=== PATIENT | male | born 1955 | race Caucasian/White ===

== ENCOUNTER → 2016-11-05 | Outpatient (CLI) | payer OTHER ==
[~2016-11-05] MED LIST: CHLOTAB3 PO; LISI-725 PO; SIMV20TA2 PO
--- NOTE | 2016-11-05 16:02 | DIAGNOSTIC IMAGING REPORT ---
CHEST 2 VIEWS ROUTINE CLINICAL HISTORY: R05 [id number] cough. Dyspnea. COMPARISON STUDY: No previous studies for comparison. FINDINGS: The bones soft tissues and hemidiaphragms are normal. The cardiomediastinal silhouette is normal. The lungs are clear. The pulmonary vasculature is normal. IMPRESSION: Negative chest. Electronically signed by: Aebl Lozano M.D. 11/05/2016 4:00 PM Dictated Date/Time: 11/05/2016 4:00 PM
== END | disposition home or self-care (01) ==
LOC: C.RAD1850 15:45
PROVIDERS: ATTEND Family Medicine
DX: R06.2 Wheezing (principal); R05 Cough

== ENCOUNTER → 2017-11-15 | Outpatient (CLI) | payer OTHER ==
[~2017-11-15] MED LIST changes: -CHLOTAB3 PO; -LISI-725 PO
[2017-11-15 11:46] LABS: BASO % 0.3 %; BASO ABS # 0.02 K/uL (0-0.2); EOS % 2.2 %; EOS ABS # 0.15 K/uL (0-0.5); HEMATOCRIT 44.4 % (42-52); HEMOGLOBIN 15.2 g/dL (14.0-18.0); IG# 0.01 K/uL (0.00-0.02); LYMPH % 32.9 %; LYMPH ABS # 2.25 K/uL (1.2-3.4); MEAN CELL VOLUME 90.4 fL (80-100); MEAN CORPUSCULAR HGB CONC 34.2 g/dl (32-36); MEAN PLATELET VOLUME 10.5 fL (7.4-10.4); MONO ABS # 0.55 K/uL (0.11-0.59); NEUT % 56.5 %; NEUT ABS # 3.86 K/uL (1.4-6.5); PLATELET COUNT 201 K/uL (130-400); RED CELL DISTRIBUTION WIDTH CV 12.8 % (11.5-14.5); RED CELL DISTRIBUTION WIDTH SD 42.1 fL (36.4-46.3); WHITE BLOOD COUNT 6.84 K/uL (4.8-10.8)
[2017-11-15 12:10] LABS: ALBUMIN 3.9 gm/dl (3.4-5.0); ALT/SGPT 27 U/L (12-78); AST/SGOT 16 U/L (15-37); BLOOD UREA NITROGEN 18 mg/dl (7-18); CALCIUM 8.9 mg/dl (8.5-10.1); CARBON DIOXIDE 27 mmol/L (21-32); CREATININE 1.03 mg/dl (0.60-1.40); GLUCOSE 98 mg/dl (70-99); POTASSIUM 3.8 mmol/L (3.5-5.1); SODIUM 140 mmol/L (136-145)
[2017-11-15 12:15] LABS: ALKALINE PHOSPHATASE 68 U/L (45-117); CHOLESTEROL 144 mg/dl (0-200); LDL CHOLESTEROL CALCULATED 65 mg/dl; TOTAL PROTEIN 7.4 gm/dl (6.4-8.2)
== END | disposition home or self-care (01) ==
LOC: C.LABBC 08:52
PROVIDERS: ATTEND Nurse Practitioner Family
DX: H91.90 Unspecified hearing loss, unspecified ear (principal); Z85.46 Personal history of malignant neoplasm of prostate; Z11.59 Encounter for screening for other viral diseases; E78.5 Hyperlipidemia, unspecified; I10 Essential (primary) hypertension

== ENCOUNTER 2018-12-08 14:33 | Inpatient (IN) ==
--- NOTE | 2018-12-08 15:44 | XRay Report ---
XR chest 1V portable CLINICAL HISTORY: weakness dyspnea COMPARISON STUDY: No previous studies for comparison. FINDINGS: The bones soft tissues and hemidiaphragms are normal. The cardiomediastinal silhouette is n ormal. The lungs are clear. The pulmonary vasculature is normal. IMPRESSION: Negative chest. The above report was generated using voice recognition software. It may contain grammatical, syntax or spelling errors. Electronically signed by: Abel Lozano M.D. 12/08/2018 3:43 PM
[2018-12-08 16:13] LABS: Basophils # (auto) 0.07 K/uL (0-0.2); Basophils % (auto) 1.4 %; Eosinophils # (auto) 0.13 K/uL (0-0.5); Eosinophils % (auto) 2.6 %; Hematocrit (blood only) 41.2 % (42-52); Hemoglobin 13.9 g/dL (14.0-18.0); Lymphocytes # (auto) 1.68 K/uL (1.2-3.4); Lymphocytes % (auto) 33.9 %; Mean Corpuscular Hgb Conc 33.7 g/dL (32-36); Mean Corpuscular Volume 92.8 fL (80-100); Mean Platelet Volume 10.8 fL (7.4-10.4); Monocytes % (auto) 12.1 %; Neutrophils # (auto) 2.47 K/uL (1.4-6.5); Platelet Count 192 K/uL (130-400); RDW Coefficient of Variation 12.8 % (11.5-14.5); RDW Standard Deviation 43.2 fL (36.4-46.3); Red Blood Count 4.44 M/uL (4.7-6.1); White Blood Count 4.95 K/uL (4.8-10.8)
--- NOTE | 2018-12-08 16:24 | CT Scan Report ---
CT head/brain wo con CT DOSE: 729.78 mGycm HISTORY: Mental status change weakness TECHNIQUE: Multiaxial CT images of the head were performed without the use of intravenous contrast. A dose lowering technique was utilized adhering to the principles of ALARA. Comparison: None. Findings: The paranasal sinuses and mastoid air cells are clear. 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 Stable atrophy of the cerebellum and pontine medullary region. Mild chronic small vessel change of periventricular deep white matter regions. No acute intracranial hemorrhage. Impression: Pre-existing infarcts and atrophy. No acute process. The above report was generated using voice recognition software. It may contain grammatical, syntax or spelling errors. Electronically signed by: Abel Lozano M.D. 12/08/2018 4:23 PM
[2018-12-08 16:28] LABS: Albumin Level 3.8 gm/dl (3.4-5.0); BUN Creatinine Ratio 14.2 (10-20); Creatinine Clr Calc Pharmacy 66.2 ml/min; Est GFR (African American) 73.9; Est GFR (Non-African American) 63.7; Potassium 4.1 mmol/L (3.5-5.1)
--- NOTE | 2018-12-08 16:32 | CT Scan Report ---
CT SCAN OF THE ABDOMEN AND PELVIS WITHOUT IV CONTRAST CLINICAL HISTORY: Generalized abdominal pain. COMPARISON STUDY: No priors. TECHNIQUE: CT scan of the abdomen and pelvis is performed from the lung bases to the proximal femora. Images are reviewed in the axial, sagittal, and coronal planes. IV contrast was not administered for this examination as per the referring clinician. Note that the examination was performed in signific antly suboptimal fashion without oral and IV contrast. The examination is also degraded by streak art ifact from the arms which could not be elevated above the abdomen. A dose lowering technique was util ized adhering to the principles of ALARA. CT DOSE: 1108.51 mGycm FINDINGS: Lung bases: The heart is top normal in size and without pericardial effusion. The lung bases are naseem r noting dependent atelectasis. Liver: The unenhanced liver is normal in size, contour, and attenuation. There is no intrahepatic vannesa iary ductal dilatation. Scattered hepatic cysts measure up to 2.5 cm. Additional subcentimeter hypode nsities also likely represent cysts but are too small for definitive characterization. Gallbladder: Unremarkable. Spleen: Normal in size and attenuation. Pancreas: The unenhanced pancreas is moderately atrophic and grossly unremarkable. Adrenal glands: Unremarkable. Kidneys: The unenhanced kidneys demonstrate cortical atrophy and are without hydronephrosis. There ar e least 2 nonobstructing calculi in the right kidney, and at least 8 nonobstructing left or a calculi . These measure up to 7 mm. A 2.6 cm cyst is noted in the left lower pole. Abdominal vasculature: The abdominal aorta is normal in course and caliber noting mild atheroscleroti c calcification. Bowel: There is rectosigmoid fecal retention and moderate constipation. No bowel obstruction is ident ified. There is mild colonic diverticulosis without CT evidence of acute diverticulitis. The appendix is well-visualized and normal. Peritoneum: There is no intraperitoneal free air or abdominal ascites. Lymphadenopathy: None. Pelvic viscera: The prostate gland is surgically absent, and numerous surgical clips are present in t he pelvis. The bladder is normal as visualized. Skeletal structures: The skeletal structures are osteopenic. There are bilateral pars defects at L5 w ith advanced disc space narrowing and 12 mm of anterolisthesis at L5-S1. Degenerative change and part ial fusion is noted in the sacroiliac joints. No lytic or blastic lesions are seen. IMPRESSION: 1. Suboptimal examination without oral and IV contrast. 2. There are no acute infectious or inflammatory findings in the abdomen or pelvis. 3. Rectosigmoid fecal retention and moderate constipation. 4. Bilateral nephrolithiasis. 5. Additional findings as above. Electronically signed by: Neftali Dennison M.D. 12/08/2018 4:31 PM
[2018-12-08 16:39] LABS: Albumin Globulin Ratio 1.1 (0.9-2); Bilirubin,Total 0.4 mg/dl (0.2-1); Globulin 3.4 gm/dl (2.5-4.0); Total Protein 7.2 gm/dl (6.4-8.2)
[2018-12-08 19:32] LABS: Appearance Urine Cloudy (Clear); Bacteria Urine Automated 2+ (Negative); Bilirubin Urine Negative (Negative); Blood Urine 1+ (Negative); Color Urine Yellow; Epithelial Cell Urine Auto >30 /lpf (0-5); Glucose Urine UA Negative (Negative); Ketones Urine Trace (Negative); Leukocyte Esterase Urine 1+ (Negative); Nitrite Urine Negative (Negative); Protein Urine Negative (Negative); Specific Gravity Urine 1.022 (1.000-1.030); Urobilinogen Urine Positive (Negative)
[2018-12-08] MEDS ORDERED: SODIUM CHLORIDE 0.9% 1000ML 1,000 ML IV ONE (19:55)
[2018-12-08 19:56] LABS: Renal Epithelial Cells Urine 0-5 /lpf (0-5)
--- NOTE | 2018-12-08 20:50 | Emergency Department Note ---
Entered by Michael Mckeon acting as a scribe for Jimmie Valdivia MD History of Present Illness General Chief complaint: Illness Stated complaint: lethargic Time Seen by Provider: 12/08/18 15:04 Source: patient and family History of Present Illness Onset (ago): week(s) (past few) Location: head (generalized) and lower extremity Pain Consistency: + other (persistent) Quality: + other (weakness) Associated symptoms: + other (vomiting, constipation; stroke five months ago) The patient is a 63 year old male who presents to the Emergency Room with complaints of persistent weakness and general decline for the past few weeks. 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 She states that he has regained some movement in his left leg but not his arm. Family states that the patient has been home from [facility] for the past three weeks, and he has been vomiting and intermittently constipated. She states that the patient had a UTI 1.5 weeks ago and finished his antibiotics three days ago. She notes that the patient was having hallucinations associated with his UTI that have been improving. She reports that the patient fell a few weeks ago at [facility] out of a wheelchair landing on his arm, and he notes left shoulder pain since that time. She states that the patient cannot be accepted to nursing care until he has been evaluated. She notes that the patient is not himself. She states that the patient does not take blood thinners. Home Medications Home Medications Medication Instructions Recorded Confirmed Type acetaminophen 1,000 mg PO BID PRN 12/08/18 12/08/18 History baclofen 10 mg PO TID PRN 12/08/18 12/08/18 History carvedilol 6.25 mg PO BID 12/08/18 12/08/18 History magnesium citrate 1 dose PO UD PRN 12/08/18 12/08/18 History magnesium hydroxide [Milk of 30 ml PO UD PRN 12/08/18 12/08/18 History Magnesia] melatonin 3 mg PO HS PRN 12/08/18 12/08/18 History ondansetron HCl [Zofran] 4 mg PO TID PRN 12/08/18 12/08/18 History polyethylene glycol 3350 [Miralax] 17 g PO UD PRN 12/08/18 12/08/18 History sennosides [senna] 8.6 mg PO DAILY PRN 12/08/18 12/08/18 History sodium phosphates [Fleet Enema] 118 ml FL UD PRN 12/08/18 12/08/18 History Allergies Allergy/AdvReac Type Severity Reaction Status Date / Time No Known Allergies Allergy Unverified 12/08/18 15:53 Past Med/Surg History Medical History History of stroke with residual deficit Family History Other Family history non-contributory Social History Feels Safe at Home: Yes Smoking Status: Never smoker Review of Systems See HPI for pertinent positives & negatives. and A total of 10 systems reviewed and were otherwise negative Physical Exam Vital Signs Vital Signs - 24 hr 12/08/18 14:39 12/08/18 16:00 12/08/18 17:01 Temperature 36.7 C Temperature Source Oral Sepsis Recent Fever Within 48 Hours No Sepsis New/Unexplained Change in Mental Status No Sepsis Action Taken by Nursing No Action Required Pulse Rate 58 L Pulse Rate [Finger] 62 Respiratory Rate 20 20 Respiratory Effort / Characteristics Respiratory Depth Respiratory Pattern Blood Pressure 120/78 Blood Pressure [Right Arm] 150/96 H Blood Pressure Mean 92 Blood Pressure Mean [Right Arm] 114 Blood Pressure Position [Right Arm] Pulse Oximetry 97 97 Oxygen Delivery Method Room Air Room Air Room Air 12/08/18 17:40 12/08/18 19:09 Temperature Temperature Source Sepsis Recent Fever Within 48 Hours Sepsis New/Unexplained Change in Mental Status Sepsis Action Taken by Nursing Pulse Rate Pulse Rate [Finger] 65 Respiratory Rate 20 16 Respiratory Effort / Characteristics Non-Labored Respiratory Depth Normal Respiratory Pattern Regular Blood Pressure Blood Pressure [Right Arm] 138/86 123/77 Blood Pressure Mean Blood Pressure Mean [Right Arm] 103 92 Blood Pressure Position [Right Arm] Lying Pulse Oximetry 100 94 Oxygen Delivery Method Room Air Room Air General: Non-ill appearing older male in no acute distress. HEENT: Right facial droop noted. Atraumatic. Pupils are equal round and reactive to light. Extraocular movements are intact. Oropharynx is pink with moist mucous membranes. No swelling of the mouth lips or tongue. Neck: Supple with a midline trachea. No meningeal signs or stiffness, no JVD or bruits. No Stridor. Chest: Clear to auscultation bilaterally. No wheezes or rhonchi. No increased work of breathing. Heart: regular rate and rhythm. Abdomen: Soft nontender, nondistended without rebound guarding or rigidity. Extremities: No cyanosis clubbing or edema. No calf tenderness or assymetry Spine/Back. Non tender to palpation. No CVA tenderness Skin: Good turgor without rashes. Neurologic exam: Baseline neurological deficits from a stroke in July 2018. Droop of the right face noted. Mild aphasia. Left arm is densely weak. Left leg does have some movement but is weaker than the right. Course 1506: Past medical records reviewed. The patient was evaluated in room A12A, and a complete history and physical examination were performed. 1740: I checked on the patient, who appears comfortable. 1800: I updated the patient and family on current results. 1930: I consulted Dr. Godinez [facility] Hospitalist. He will reevaluate the patient for hospitalization. 1950: I checked on the patient, who appears to be doing well. Consultations Consultation #1: I consulted Dr. Godinez [facility] Hospitalist. He will reevaluate the patient for hospitalization. Time: 19:31 Medical Decision Making Differential Diagnosis Differential diagnosis: bowel obstruction, constipation, infection, intracranial process, electrolyte or metabolic abnormalities Medical Records Attestation: I reviewed the patient's medical records. Home Medications Current Medication List: was personally reviewed by me Laboratory Data Attestation: I reviewed the patient's lab results. Result diagrams: 12/08/18 16:00 12/08/18 16:00 Lab Results 12/08/18 12/08/18 12/08/18 Range/Units 16:00 16:00 19:00 WBC 4.95 (4.8-10.8) K/uL RBC 4.44 L (4.7-6.1) M/uL Hgb 13.9 L (14.0-18.0) g/dL Hct 41.2 L (42-52) % MCV 92.8 (80-100) fL MCH 31.3 (25-34) pg MCHC 33.7 (32-36) g/dL RDW Std Deviation 43.2 (36.4-46.3) fL RDW Coeff of Deanne 12.8 (11.5-14.5) % Plt Count 192 (130-400) K/uL MPV 10.8 H (7.4-10.4) fL Immature Gran % (Auto) 0.0 % Neut % (Auto) 50.0 % Lymph % (Auto) 33.9 % [place] % (Auto) 12.1 % Eos % (Auto) 2.6 % Baso % (Auto) 1.4 % Immature Gran # (Auto) 0.00 (0.00-0.02) K/uL Neut # (Auto) 2.47 (1.4-6.5) K/uL Lymph # (Auto) 1.68 (1.2-3.4) K/uL [place] # (Auto) 0.60 H (0.11-0.59) K/uL Eos # (Auto) 0.13 (0-0.5) K/uL Baso # (Auto) 0.07 (0-0.2) K/uL Sodium 141 (136-145) mmol/L Potassium 4.1 (3.5-5.1) mmol/L Chloride 108 H (98-107) mmol/L Carbon Dioxide 30 (21-32) mmol/L Anion Gap 3.0 (3-11) BUN 17 (7-18) mg/dl Creatinine 1.19 (0.6-1.4) mg/dl Est Cr Clr Drug Dosing 66.2 ml/min Est GFR ( Amer) 73.9 Est GFR (Non-Af Amer) 63.7 BUN/Creatinine Ratio 14.2 (10-20) Glucose 90 (70-99) mg/dl Calcium 9.0 (8.5-10.1) mg/dl Total Bilirubin 0.4 (0.2-1) mg/dl AST 16 (15-37) U/L ALT 35 (12-78) U/L Alkaline Phosphatase 75 (45-117) U/L Total Protein 7.2 (6.4-8.2) gm/dl Albumin 3.8 (3.4-5.0) gm/dl Globulin 3.4 (2.5-4.0) gm/dl Albumin/Globulin Ratio 1.1 (0.9-2) TSH 1.270 (0.300-4.500) uIu/ml Urine Color Yellow Urine Appearance Cloudy H (Clear) Urine pH 6.0 (4.5-7.5) Ur Specific [place] 1.022 (1.000-1.030) Urine Protein Negative (Negative) Urine Glucose (UA) Negative (Negative) Urine Ketones Trace H (Negative) Urine Blood 1+ H (Negative) Urine Nitrite Negative (Negative) Urine Bilirubin Negative (Negative) Urine Urobilinogen Positive H (Negative) Ur Leukocyte Esterase 1+ H (Negative) Urine WBC (Auto) 10-30 H (0-5) /hpf Urine RBC (Auto) 10-30 H (0-4) /hpf U Hyaline Cast (Auto) 10-30 H (0-5) /lpf U Epithel Cells (Auto) >30 H (0-5) /lpf Urine Bacteria (Auto) 2+ H (Negative) Ur Renal Epithelial Cell 0-5 (0-5) /lpf Urine Crystals Calcium Oxalate H (None Prsent) Urine Yeast Not Reportable Imaging Data Radiologist's Impression: Radiology results as stated below per my review and the radiologist's interpretation: CT SCAN OF THE ABDOMEN AND PELVIS WITHOUT IV CONTRAST CLINICAL HISTORY: Generalized abdominal pain. COMPARISON STUDY: No priors. TECHNIQUE: CT scan of the abdomen and pelvis is performed from the lung bases to the proximal femora. Images are reviewed in the axial, sagittal, and coronal planes. IV contrast was not administered for this examination as per the referring clinician. Note that the examination was performed in significantly suboptimal fashion without oral and IV contrast. The examination is also degraded by streak artifact from the arms which could not be elevated above the abdomen. A dose lowering technique was utilized adhering to the principles of ALARA. CT DOSE: 1108.51 mGycm FINDINGS: Lung bases: The heart is top normal in size and without pericardial effusion. The lung bases are clear noting dependent atelectasis. Liver: The unenhanced liver is normal in size, contour, and attenuation. There is no intrahepatic biliary ductal dilatation. Scattered hepatic cysts measure up to 2.5 cm. Additional subcentimeter hypodensities also likely represent cysts but are too small for definitive characterization. Gallbladder: Unremarkable. Spleen: Normal in size and attenuation. Pancreas: The unenhanced pancreas is moderately atrophic and grossly unremarkable. Adrenal glands: Unremarkable. Kidneys: The unenhanced kidneys demonstrate cortical atrophy and are without hydronephrosis. There are least 2 nonobstructing calculi in the right kidney, and at least 8 nonobstructing left or a calculi. These measure up to 7 mm. A 2.6 cm cyst is noted in the left lower pole. Abdominal vasculature: The abdominal aorta is normal in course and caliber noting mild atherosclerotic calcification. Bowel: There is rectosigmoid fecal retention and moderate constipation. No bowel obstruction is identified. There is mild colonic diverticulosis without CT evidence of acute diverticulitis. The appendix is well-visualized and normal. Peritoneum: There is no intraperitoneal free air or abdominal ascites. Lymphadenopathy: None. Pelvic viscera: The prostate gland is surgically absent, and numerous surgical clips are present in the pelvis. The bladder is normal as visualized. Skeletal structures: The skeletal structures are osteopenic. There are bilateral pars defects at L5 with advanced disc space narrowing and 12 mm of anterolisthesis at L5-S1. Degenerative change and partial fusion is noted in the sacroiliac joints. No lytic or blastic lesions are seen. IMPRESSION: 1. Suboptimal examination without oral and IV contrast. 2. There are no acute infectious or inflammatory findings in the abdomen or pelvis. 3. Rectosigmoid fecal retention and moderate constipation. 4. Bilateral nephrolithiasis. 5. Additional findings as above. Electronically signed by: Neftali Dennison M.D. 12/08/2018 4:31 PM XR chest 1V portable CLINICAL HISTORY: weakness dyspnea COMPARISON STUDY: No previous studies for comparison. FINDINGS: The bones soft tissues and hemidiaphragms are normal. The cardiomediastinal silhouette is normal. The lungs are clear. The pulmonary vasculature is normal. IMPRESSION: Negative chest. The above report was generated using voice recognition software. It may contain grammatical, syntax or spelling errors. Electronically signed by: Abel Lozano M.D. 12/08/2018 3:[address] head/brain wo con CT DOSE: 729.78 mGycm HISTORY: Mental status change weakness TECHNIQUE: Multiaxial CT images of the head were performed without the use of intravenous contrast. A dose lowering technique was utilized adhering to the principles of ALARA. Comparison: None. Findings: The paranasal sinuses and mastoid air cells are clear. 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 Stable atrophy of the cerebellum and pontine medullary region. Mild chronic small vessel change of periventricular deep white matter regions. No acute intracranial hemorrhage. Impression: Pre-existing infarcts and atrophy. No acute process. The above report was generated using voice recognition software. It may contain grammatical, syntax or spelling errors. Electronically signed by: Abel Lozano M.D. 12/08/2018 4:23 PM ECG Data Attestation: I personally reviewed and interpreted this ECG as follows: Indication: weakness Rate (beats per minute): 58 Rhythm: sinus bradycardia Findings: + other (poor baseline) and + RBBB; no ST depression and no ST elevation Blood Pressure Blood Pressure Findings: Normal blood pressure Blood Pressure Disposition: did not require urgent referral MDM Narrative This patient comes in as described above appears placed in room A12. He had a stroke about 5 months ago and since then has had a lot of weakness in his left side at baseline now. He has been in rehab in inpatient facilities about 3 weeks ago and since then he has been at home his 's been having difficult time caring for him. he has had intermittent nausea and constipation as well as dizziness. With this stroke, he had had some ataxia and he gets nauseated with this. This is not changed. He has had no new numbness or weakness. He did have some nausea. IV access established and he was hydrated with IV normal saline bolus while he was in the ER. EKG does not suggest acute coronary syndrome or arrhythmia. He has no acute electrolyte or metabolic abnormality. He has no acute findings on CAT scan of his head. CAT scan of the abdomen shows no evidence of traction he does have some patient as well as some fecal rectal impaction as well. He has no significant x-ray or metabolic abnormalities. His does not feel comfortable taking him home. We tried to get him into [facility] but they cannot take him today but may be able toe take him tomorrow. For his safety and for further evaluation of his weakness and nausea, I do think he needs to be admitted/observed on consult Dr. Mansfield for these measures. Impression & Plan Weakness, Nausea, Constipation, Dizziness Discharge Plan Visit Data Chief Complaint: Illness Stated Complaint: lethargic ED Provider: Jimmie Valdivia Discharge Problem: Weakness, Nausea, Constipation, Dizziness Patient Disposition: Being Evaluated by Hospitalist Forms Stand Alone Forms: My [facility] Prescriptions Prescriptions: No Action sennosides [senna] 8.6 mg Tablet 8.6 mg PO DAILY PRN (Reason: Constipation) RF: 0 carvedilol 6.25 mg Tablet 6.25 mg PO BID RF: 0 polyethylene glycol 3350 [Miralax] 17 gram Powder In Packet 17 g PO UD PRN (Reason: Constipation) RF: 0 ondansetron HCl [Zofran] 4 mg Tablet 4 mg PO TID PRN (Reason: Nausea And Vomiting) RF: 0 melatonin 3 mg Tablet 3 mg PO HS PRN (Reason: Sleep) RF: 0 acetaminophen 500 mg Tablet 1,000 mg PO BID PRN (Reason: Pain) RF: 0 magnesium hydroxide [Milk of Magnesia] 400 mg/5 mL Suspension 30 ml PO UD PRN (Reason: Constipation) RF: 0 baclofen 10 mg Tablet 10 mg PO TID PRN (Reason: Muscle Spasm) RF: 0 sodium phosphates [Fleet Enema] 19-7 gram/118 mL Enema 118 ml FL UD PRN (Reason: Constipation) RF: 0 magnesium citrate Solution 1 dose PO UD PRN (Reason: Constipation) RF: 0 Referrals Referrals: Juan Antonio Perdomo III, CRNP [Primary Care Provider] - The scribe's documentation has been prepared under my direction and personally reviewed by me in its entirety. I confirm that the note above accurately reflects all work, treatment, procedures, and medical decision making performed by me.
--- NOTE | 2018-12-08 22:17 | History & Physical Report ---
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 He continues to require significant amount of care. His , even with the help of aides, is finding it difficult to care for him at home, since discharged from [facility] 3 weeks ago. She is anticipating needing to have him do inpatient rehab again. We will treat his urinary tract infection more completely, to see if part of his recent loss of functioning is associated with metabolic encephalopathy. Consult neurology. Present on Admission?: Yes (2) Nausea: His reports that movement of his head since his CVA, can result in significant acute nausea, sometimes vomiting. This appears to be associated with his previous CVA. Will ask neurology consult for any suggestions other than symptomatic treatment with Zofran. Question whether an MRI of brain would be of value, to assess for any possible Chiari type process, but would have expected that to have been investigated at [facility]. Present on Admission?: Yes (3) Left-sided weakness: See above Present on Admission?: Yes (4) Constipation: CT suggest rectosigmoid fecal retention, and constipation, which may be contributing to his nausea as well. Bowel regimen includes MiraLAX, senna and Fleet's enemas daily as needed. Would change regimen to have MiraLAX and senna daily, and continue fleets enemas as as needed. Add Dulcolax suppository. Present on Admission?: Yes (5) Hypertension: Continue carvedilol 6.25 mg p.o. twice daily, with hold parameters. Present on Admission?: Yes (6) Muscle spasm: Would change baclofen from 10 mg p.o. 3 times daily as needed to scheduled , as patient's left upper extremity is curled inward in a complete spasm. Present on Admission?: Yes (7) UTI (urinary tract infection): Urinalysis and urine culture from 11/29/18 shows alpha strep not enterococcus. Patient did complete a 7-day course of Bactrim 3 days ago. His reports that he was having hallucinations prior to this discovery. I would not think this is a long enough course of therapy for a male as this will be considered a complicated UTI. Placed on ceftriaxone 1 g IV daily, and when patient is discharged should be on an additional 2 weeks of oral antibiotics Present on Admission?: Yes (8) Prostate cancer: Patient is status post radical prostatectomy several years ago. Present on Admission?: Yes History of Present Illness Chief Complaint: The patient presents to the emergency department with his in attendance, with complaint of persistent weakness, worsening ambulatory dysfunction, and control of bowel and bladder. Primary Care Provider: Juan Antonio Perdomo, III, GRAIN WEIGHER The patient is a 63-year-old male who had a stroke approximately 5 months ago, taking care of at [facility], with residual left arm and left leg weakness, bowel and urinary incontinence. He has since been to 3 successive rehab facilities, most recently from [facility], was discharged to home 3 weeks ago , with care of his and aides. He began to have hallucinations, and underwent a screening urinalysis sent by 1 of the nurses aides 1 1/2 weeks ago, was placed on Bactrim for 7 days, which was completed 3 days ago, and has continued to have a slow decline in function. He has had some return of function of his left leg, but his left arm is continue to be limp. His reports that he has been noted to have a neurologic component to sometimes severe nausea and vomiting, that they were told was ataxia associated with his stroke. The symptoms are not tied to oral intake of any sort, and he does not report any abdominal pain Allergies Allergy/AdvReac Type Severity Reaction Status Date / Time No Known Allergies Allergy Unverified 12/08/18 15:53 Home Medications Home Medications Medication Instructions Recorded Confirmed Type acetaminophen 1,000 mg PO BID PRN 12/08/18 12/08/18 History baclofen 10 mg PO TID PRN 12/08/18 12/08/18 History carvedilol 6.25 mg PO BID 12/08/18 12/08/18 History magnesium citrate 1 dose PO UD PRN 12/08/18 12/08/18 History magnesium hydroxide [Milk of 30 ml PO UD PRN 12/08/18 12/08/18 History Magnesia] melatonin 3 mg PO HS PRN 12/08/18 12/08/18 History ondansetron HCl [Zofran] 4 mg PO TID PRN 12/08/18 12/08/18 History polyethylene glycol 3350 [Miralax] 17 g PO UD PRN 12/08/18 12/08/18 History sennosides [senna] 8.6 mg PO DAILY PRN 12/08/18 12/08/18 History sodium phosphates [Fleet Enema] 118 ml [place] UD PRN 12/08/18 12/08/18 History Past Med/Surg History Medical History History of stroke with residual deficit Family History Other Family history non-contributory Social History Current Living Situation: Spouse Other Information That Helps Us Care for You: No Feels Safe at Home: Yes Safety Concerns: Feels Safe At This Time Smoking Status: Never smoker Hx Alcohol Use: No Hx Substance Use: No Beliefs That Will Affect Care: None Preferred Language: New Zealander Communication Ability: Impaired Communication Ability Comment: hx cva, left arm flaccid, some garbled speech, some strange statements Traveling Freight Agent Required: No Review of Systems The patient denies chest pain, palpitations, shortness of breath, dyspnea on exertion, cough, sore throat, fevers, chills, sweats, diarrhea , constipation, abdominal pain, pelvic pain, blood in urine or stool, dysuria, urinary frequency or urgency, loss of consciousness, rash, abnormal bruising or bleeding, focal weakness, numbness or tingling in his right arm or leg, generalized arthralgias or myalgias, back or neck pain, or night sweats. The review of systems is otherwise negative other than for that already noted above, and at least 10 systems have been reviewed. Physical Exam 2 Vital Signs (Past 24 Hours): Last Vital Signs Temp 36.7 C 12/08/18 14:39 Pulse 65 12/08/18 17:40 Resp 16 12/08/18 19:09 BP 123/77 12/08/18 19:09 Pulse Ox 94 12/08/18 19:09 Physical Exam: The patient is awake, alert and oriented 3, lying in bed and in no acute distress. HEENT--PERRL, EOMI, mucous membranes and oropharynx dry. Neck--supple. No JVD. No bruits. Thyroid normal, trachea midline, no adenopathy. Heart--normal S1 and S2. No murmurs, rubs or gallops. Lungs--clear bilaterally, no respiratory distress, no accessory muscle use. Abdomen--normal bowel sounds and soft. Nontender. Nondistended. Extremities--no cyanosis or clubbing. No edema. There are good distal pulses b/ l. Dermatologic--normal skin turgor, normal color, no abnormal lymph nodes, no rash. Neurologic--motor strength left upper extremity 0/5, left lower extremity 4/5. Right upper and lower extremity normal 5/5 Rheumatologic--limited due to neurologic state Psychiatric--normal affect. Results & Data Laboratory Results Laboratory Results WBC 4.95 K/uL (4.8-10.8) 12/08/18 16:00 RBC 4.44 M/uL (4.7-6.1) L 12/08/18 16:00 Hgb 13.9 g/dL (14.0-18.0) L 12/08/18 16:00 Hct 41.2 % (42-52) L 12/08/18 16:00 MCV 92.8 fL (80-100) 12/08/18 16:00 MCH 31.3 pg (25-34) 12/08/18 16:00 MCHC 33.7 g/dL (32-36) 12/08/18 16:00 RDW Std Deviation 43.2 fL (36.4-46.3) 12/08/18 16:00 RDW Coeff of Deanne 12.8 % (11.5-14.5) 12/08/18 16:00 Plt Count 192 K/uL (130-400) 12/08/18 16:00 MPV 10.8 fL (7.4-10.4) H 12/08/18 16:00 Immature Gran % (Auto) 0.0 % 12/08/18 16:00 Neut % (Auto) 50.0 % 12/08/18 16:00 Lymph % (Auto) 33.9 % 12/08/18 16:00 [place] % (Auto) 12.1 % 12/08/18 16:00 Eos % (Auto) 2.6 % 12/08/18 16:00 Baso % (Auto) 1.4 % 12/08/18 16:00 Immature Gran # (Auto) 0.00 K/uL (0.00-0.02) 12/08/18 16:00 Neut # (Auto) 2.47 K/uL (1.4-6.5) 12/08/18 16:00 Lymph # (Auto) 1.68 K/uL (1.2-3.4) 12/08/18 16:00 [place]burn # (Auto) 0.60 K/uL (0.11-0.59) H 12/08/18 16:00 Eos # (Auto) 0.13 K/uL (0-0.5) 12/08/18 16:00 Baso # (Auto) 0.07 K/uL (0-0.2) 12/08/18 16:00 Sodium 141 mmol/L (136-145) 12/08/18 16:00 Potassium 4.1 mmol/L (3.5-5.1) 12/08/18 16:00 Chloride 108 mmol/L (98-107) H 12/08/18 16:00 Carbon Dioxide 30 mmol/L (21-32) 12/08/18 16:00 Anion Gap 3.0 (3-11) 12/08/18 16:00 BUN 17 mg/dl (7-18) 12/08/18 16:00 Creatinine 1.19 mg/dl (0.6-1.4) 12/08/18 16:00 Est Cr Clr Drug Dosing 66.2 ml/min 12/08/18 16:00 Est GFR ( Amer) 73.9 12/08/18 16:00 Est GFR (Non-Af Amer) 63.7 12/08/18 16:00 BUN/Creatinine Ratio 14.2 (10-20) 12/08/18 16:00 Glucose 90 mg/dl (70-99) 12/08/18 16:00 Calcium 9.0 mg/dl (8.5-10.1) 12/08/18 16:00 Total Bilirubin 0.4 mg/dl (0.2-1) 12/08/18 16:00 AST 16 U/L (15-37) 12/08/18 16:00 ALT 35 U/L (12-78) 12/08/18 16:00 Alkaline Phosphatase 75 U/L (45-117) 12/08/18 16:00 Total Protein 7.2 gm/dl (6.4-8.2) 12/08/18 16:00 Albumin 3.8 gm/dl (3.4-5.0) 12/08/18 16:00 Globulin 3.4 gm/dl (2.5-4.0) 12/08/18 16:00 Albumin/Globulin Ratio 1.1 (0.9-2) 12/08/18 16:00 TSH 1.270 uIu/ml (0.300-4.500) 12/08/18 16:00 Urine Color Yellow 12/08/18 19:00 Urine Appearance Cloudy (Clear) H 12/08/18 19:00 Urine pH 6.0 (4.5-7.5) 12/08/18 19:00 Ur Specific [place] 1.022 (1.000-1.030) 12/08/18 19:00 Urine Protein Negative (Negative) 12/08/18 19:00 Urine Glucose (UA) Negative (Negative) 12/08/18 19: Urine Ketones Trace (Negative) H 12/08/18 19:00 Urine Blood 1+ (Negative) H 12/08/18 19:00 Urine Nitrite Negative (Negative) 12/08/18 19:00 Urine Bilirubin Negative (Negative) 12/08/18 19:00 Urine Urobilinogen Positive (Negative) H 12/08/18 19:00 Ur Leukocyte Esterase 1+ (Negative) H 12/08/18 19:00 Urine WBC (Auto) 10-30 /hpf (0-5) H 12/08/18 19:00 Urine RBC (Auto) 10-30 /hpf (0-4) H 12/08/18 19:00 U Hyaline Cast (Auto) 10-30 /lpf (0-5) H 12/08/18 19:00 U Epithel Cells (Auto) >30 /lpf (0-5) H 12/08/18 19:00 Urine Bacteria (Auto) 2+ (Negative) H 12/08/18 19:00 Ur Renal Epithelial Cell 0-5 /lpf (0-5) 12/08/18 19:00 Urine Crystals Calcium Oxalate (None Prsent) H 12/08/18 19:00 Urine Yeast Not Reportable 12/08/18 19:00 Diagnostic Findings [place], [place] [phone] CT Scan Report Patient: SG BECKER AAdmit Date: 12/08/18 MR#: [id number]: [address] Acct ID:[id number]: Date: 1955ity Zip: [place] [address] Age: 63Location: ED Sex: M Room/Bed: Att Phy: Diagnosis: lethargic Moriah Phy: Juan Antonio Perdomo, III, CRNPService Date: 12/08/18 Fam Phy: Interpreting Phy: Neftali Dennison MD Admit Phy: Ordering Phy: Jimmie Valdivia M.D. cc: ~ CT SCAN OF THE ABDOMEN AND PELVIS WITHOUT IV CONTRAST CLINICAL HISTORY: Generalized abdominal pain. COMPARISON STUDY: No priors. TECHNIQUE: CT scan of the abdomen and pelvis is performed from the lung bases to the proximal femora. Images are reviewed in the axial, sagittal, and coronal planes. IV contrast was not administered for this examination as per the referring clinician. Note that the examination was performed in significantly suboptimal fashion without oral and IV contrast. The examination is also degraded by streak artifact from the arms which could not be elevated above the abdomen. A dose lowering technique was utilized adhering to the principles of ALARA. CT DOSE: 1108.51 mGycm FINDINGS: Lung bases: The heart is top normal in size and without pericardial effusion. The lung bases are clear noting dependent atelectasis. Liver: The unenhanced liver is normal in size, contour, and attenuation. There is no intrahepatic biliary ductal dilatation. Scattered hepatic cysts measure up to 2.5 cm. Additional subcentimeter hypodensities also likely represent cysts but are too small for definitive characterization. Gallbladder: Unremarkable. Spleen: Normal in size and attenuation. Pancreas: The unenhanced pancreas is moderately atrophic and grossly unremarkable. Adrenal glands: Unremarkable. Kidneys: The unenhanced kidneys demonstrate cortical atrophy and are without hydronephrosis. There are least 2 nonobstructing calculi in the right kidney, and at least 8 nonobstructing left or a calculi. These measure up to 7 mm. A 2.6 cm cyst is noted in the left lower pole. Abdominal vasculature: The abdominal aorta is normal in course and caliber noting mild atherosclerotic calcification. Bowel: There is rectosigmoid fecal retention and moderate constipation. No bowel obstruction is identified. There is mild colonic diverticulosis without CT evidence of acute diverticulitis. The appendix is well-visualized and normal. Peritoneum: There is no intraperitoneal free air or abdominal ascites. Lymphadenopathy: None. Pelvic viscera: The prostate gland is surgically absent, and numerous surgical clips are present in the pelvis. The bladder is normal as visualized. Skeletal structures: The skeletal structures are osteopenic. There are bilateral pars defects at L5 with advanced disc space narrowing and 12 mm of anterolisthesis at L5-S1. Degenerative change and partial fusion is noted in the sacroiliac joints. No lytic or blastic lesions are seen. IMPRESSION: 1. Suboptimal examination without oral and IV contrast. 2. There are no acute infectious or inflammatory findings in the abdomen or pelvis. 3. Rectosigmoid fecal retention and moderate constipation. 4. Bilateral nephrolithiasis. 5. Additional findings as above. Electronically signed by: Neftali Dennison M.D. 12/08/2018 4:31 PM Dictated: 12/08/18 1624 Transcribed: 12/08/18 1624 [place], [place] [phone] [place], [place] [phone] XRay Report Patient: SG BECKER AAdmit Date: 12/08/18 MR#: [id number]: 120 [address] Acct ID:[id number]: Date: [address] [place] [address] Zip: [place] [address] Age: 63Location: ED Sex: M Room/Bed: Att Phy: Diagnosis: lethargic Moriah Phy: Juan Antonio Perdomo, III, CRNPService Date: 12/08/18 Fam Phy: Interpreting Phy: Abel Lozano MD Admit Phy: Ordering Phy: Jimmie Valdivia M.D. cc: ~ XR chest 1V portable CLINICAL HISTORY: weakness dyspnea COMPARISON STUDY: No previous studies for comparison. FINDINGS: The bones soft tissues and hemidiaphragms are normal. The cardiomediastinal silhouette is normal. The lungs are clear. The pulmonary vasculature is normal. IMPRESSION: Negative chest. The above report was generated using voice recognition software. It may contain grammatical, syntax or spelling errors. Electronically signed by: Abel Lozano M.D. 12/08/2018 3:43 PM Dictated: 12/08/18 1542 Transcribed: 12/08/18 1542 [facility] [place] [phone] CT Scan Report Patient: SG BECKER AAdmit Date: 12/08/18 MR#: [id number]: 120 [address] Acct ID:[id number]: Date: 1955[facility] Zip: [place] [address] Age: 63Location: ED Sex: M Room/Bed: Att Phy: Diagnosis: lethargic Moriah Phy: Juan Antonio Perdomo, III, CRNPService Date: 12/08/18 Fam Phy: Interpreting Phy: Abel Lozano MD Admit Phy: Ordering Phy: Jimmie Valdivia M.D. cc: ~ CT head/brain wo con CT DOSE: 729.78 mGycm HISTORY: Mental status change weakness TECHNIQUE: Multiaxial CT images of the head were performed without the use of intravenous contrast. A dose lowering technique was utilized adhering to the principles of ALARA. Comparison: None. Findings: The paranasal sinuses and mastoid air cells are clear. 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 Stable atrophy of the cerebellum and pontine medullary region. Mild chronic small vessel change of periventricular deep white matter regions. No acute intracranial hemorrhage. Impression: Pre-existing infarcts and atrophy. No acute process. The above report was generated using voice recognition software. It may contain grammatical, syntax or spelling errors. Electronically signed by: Abel Lozano M.D. 12/08/2018 4:23 PM Dictated: 12/08/18 1619 Transcribed: 12/08/18 1619 Medications Administered Home Medications Medication Instructions Recorded Confirmed acetaminophen 1,000 mg PO BID PRN 12/08/18 12/08/18 baclofen 10 mg PO TID PRN 12/08/18 12/08/18 carvedilol 6.25 mg PO BID 12/08/18 12/08/18 magnesium citrate 1 dose PO UD PRN 12/08/18 12/08/18 magnesium hydroxide [Milk of 30 ml PO UD PRN 12/08/18 12/08/18 Magnesia] melatonin 3 mg PO HS PRN 12/08/18 12/08/18 ondansetron HCl [Zofran] 4 mg PO TID PRN 12/08/18 12/08/18 polyethylene glycol 3350 [Miralax] 17 g PO UD PRN 12/08/18 12/08/18 sennosides [senna] 8.6 mg PO DAILY PRN 12/08/18 12/08/18 sodium phosphates [Fleet Enema] 118 ml [place] UD PRN 12/08/18 12/08/18 Code Status & VTE Plan Code Status Full code VTE Prophylaxis Plan VTE Prophylaxis will be ordered: Yes _ (1) Constipation Constipation type: unspecified constipation type Qualified Code(s): K59.00 - Constipation, unspecified
[2018-12-08] MEDS ORDERED: SENNA 8.6 MG TAB PO PRN (23:09)
[2018-12-08] MEDS ORDERED: BACLOFEN 10 MG TAB PO PRN (23:09)
[2018-12-08] MEDS ORDERED: ACETAMINOPHEN 325 MG TAB PO PRN (23:09)
[2018-12-08] MEDS ORDERED: SOD PHOSPHATE/SOD BIPHOSPHATE ENEMA 132 ML BTL PR PRN (23:09)
[2018-12-08] MEDS ORDERED: BISACODYL 10 MG SUPP PR STA (23:09)
[2018-12-08] MEDS ORDERED: MAGNESIUM HYDROXIDE SUSP 30 ML UDC PO PRN ×2 (23:09)
[2018-12-08] MEDS ORDERED: ONDANSETRON 4 MG TAB PO PRN (23:09)
[2018-12-08] MEDS ORDERED: POLYETHYLENE (MIRALAX) 17 GM PACK PO PRN (23:09)
[2018-12-08] MEDS ORDERED: ALUMINUM/MAGNESIUM SUSP 30 ML UDC PO PRN (23:09)
[2018-12-08] MEDS ORDERED: NON-FORMULARY MEDICATION (Melatonin [Melatonin] 3 MG) PO PRN (23:09)
[2018-12-08] MEDS ORDERED: ACETAMINOPHEN 500 MG TAB PO PRN (23:09)
[2018-12-08] MEDS ORDERED: MAGNESIUM CITRATE 296 ML/BTL PO PRN (23:09)
[2018-12-09] MEDS: CARVEDILOL 6.25 MG TAB PO SCH ×3 (00:43→20:03)
[2018-12-09 05:58] LABS: Prothrombin Time 10.5 Seconds (9.0-12.0)
[2018-12-09] MEDS ORDERED: PNEUMOCOCCAL ADMINISTRATION CHARGE ONE (07:45)
[2018-12-09] MEDS ORDERED: PNEUMOCOCCAL POLYSACCHARIDES 25 MCG/0.5 ML VIAL/SYR IM ONE (07:45)
[2018-12-09] MEDS: DOCUSATE SODIUM/SENNA 50/8.6MG TAB PO SCH (08:48)
[2018-12-09] MEDS: BACLOFEN 10 MG TAB PO SCH ×3 (08:49→20:03)
[2018-12-09] MEDS: POLYETHYLENE (MIRALAX) 17 GM PACK PO SCH (08:58)
[2018-12-09] MEDS ORDERED: HEPARIN SOD 5,000 UNIT/0.5 ML VIAL SQ SCH (09:00)
[2018-12-09] MEDS: cefTRIAXone SODIUM 1,000 MG/50 ML BAG IV SCH (09:04)
--- NOTE | 2018-12-09 09:50 | Neurology Consultation ---
Date of Consultation December 09, 2018 Assessment & Plan (1) Left-sided weakness: This is a 63-year-old male with a right basal ganglia hemorrhagic stroke in July 2018 believed to be secondary to hypertension with residual left hemiplegia. Rehab course has been complicated by his spinocerebellar ataxia type with his baseline being walking with a cane or walker as well as ataxia and dysarthria. Patient appeared to have had a recent UTI causing hallucinations and decompensation. is no longer able to care for him adequately at home. Recommendations: Overall I have no new neurologic recommendations as he does not have any new neurological issues and he was just seen in neurology clinic in November. Appears that he had decompensation after returning home and with recent UTI. It appears the goal of this admission is physical therapy evaluation and rehab. Agree with baclofen standing 3 times daily to help with spasticity. If there is any additional questions or concerns, feel free to call/page me. History of Present Illness Reason for Consultation: Chronic stroke symptoms with hemiplegia Requesting Physician: Rich Godinez Attending Physician: Montez Alegre, History of Present Illness This is a 63-year-old male who presented to the hospital due to decline in overall function and his 's ability to take care of him at home. Per outpatient phone notes and by patient's own report, the purpose of the admission is to be evaluated by physical therapy to see if he can qualify for inpatient rehab again. Patient has had a recent UTI which caused significant deconditioning and hallucinations. He has not had any additional hallucinations in the last week. Please see my patient consultation and follow-up note for greater detail of his stroke workup and evaluation. In addition the patient also follows with [facility] for spinocerebellar ataxia type . At baseline he was walking with a cane or walker and had dysarthria. His goal of care is to get back to being able to live independently and transfer on his own. Overall patient denies any new neurological symptoms. He reports just overall decline in functioning over the last few weeks since coming home. He reports that he is "too much to handle" for his . Past medical history significant for spinocerebellar ataxia type Right basal ganglia hemorrhagic stroke July 2018 believed to be secondary to hypertension with residual left hemiplegia Anxiety/depression Dyslipidemia Hypertension Family history of hypertension, cancer, and spinocerebellar ataxia with his father Social history: Patient has been home for approximately 3 weeks. He was in subacute rehab for his stroke earlier. Allergies Allergy/AdvReac Type Severity Reaction Status Date / Time No Known Allergies Allergy Unverified 12/08/18 15:53 Home Medications Home Medications Medication Instructions Recorded Confirmed Type acetaminophen 1,000 mg PO BID PRN 12/08/18 12/08/18 History baclofen 10 mg PO TID PRN 12/08/18 12/08/18 History carvedilol 6.25 mg PO BID 12/08/18 12/08/18 History magnesium citrate 1 dose PO UD PRN 12/08/18 12/08/18 History magnesium hydroxide [Milk of 30 ml PO UD PRN 12/08/18 12/08/18 History Magnesia] melatonin 3 mg PO HS PRN 12/08/18 12/08/18 History ondansetron HCl [Zofran] 4 mg PO TID PRN 12/08/18 12/08/18 History polyethylene glycol 3350 [Miralax] 17 g PO UD PRN 12/08/18 12/08/18 History sennosides [senna] 8.6 mg PO DAILY PRN 12/08/18 12/08/18 History sodium phosphates [Fleet Enema] 118 ml [place] UD PRN 12/08/18 12/08/18 History Patient History Medical History History of stroke with residual deficit Family History Other Family history non-contributory Social History Current Living Situation: Spouse Other Information That Helps Us Care for You: No Feels Safe at Home: Yes Safety Concerns: Feels Safe At This Time Smoking Status: Never smoker Hx Alcohol Use: No Hx Substance Use: No Beliefs That Will Affect Care: None Preferred Language: Ivorian Communication Ability: Impaired Communication Ability Comment: hx cva, left arm flaccid, some garbled speech, some strange statements Head Of Art Required: No Review of Systems Complete review of systems otherwise negative except for the above-noted in HPI Physical Exam 2 Vital Signs (Past 24 Hours): Last Vital Signs Temp 36.3 C L 12/09/18 07:20 Pulse 72 12/09/18 07:20 Resp 17 12/09/18 07:20 BP 131/82 12/09/18 07:20 Pulse Ox 97 12/09/18 07:20 Physical Exam: Constitutional: alert, in no acute distress and well nourished. Eyes: the sclera and conjunctiva were normal, pupils were equal in size, round, reactive to light, with normal accommodation, extraocular movements were intact , the optic disc were normal in size and color and no retinal hemorrhages, vessel changes or exudates were seen on fundoscopic exam. Pt did have bidirectional nystagmus that did not extingues Heart: heart rate and rhythm were normal. Level of consciousness: normal level of consciousness. Orientation: oriented to person and oriented to place. Cognitive function: normal attention and normal concentration. Appears to have some cognitive impairment and likely some impairment of short-term memory. The patient's speech exhibited normal fluency and no aphasia. Moderate dysarthria Cranial Nerves: Visual viera intact to counting. The oculomotor, trochlear and abducens nerves were intact, no trigeminal neuropathy was noted, no facial nerve palsy was noted, hearing was intact, there was normal movement of the soft palate, shoulder shrug was intact bilaterally and there was no tongue deviation with protrusion. Strength: Full strength in right upper and lower extremity. 2/5 left shoulder abduction, 2/5 finger flexion and extension, 0/5 wrist extension, 1/5 biceps/ triceps. 2/5 in left dorsi and plantar flexion, knee extension and hip flexion. Severe spasticity in the left upper extremity and moderate spasticity in the left lower extremity. Decreased sensation on the left upper extremity compared to the right. Lower extremity strength grossly intact to light touch Coordination: Patient was grossly ataxic with finger to nose testing on the right. Unable to do finger to nose on the left due to weakness. DTR: +2 through out. Unable to test gait at this time. Station within the bed was normal.
[2018-12-09] MEDS ORDERED: BISACODYL 10 MG SUPP PR ONE (13:56)
--- NOTE | 2018-12-09 15:15 | Hospitalist Progress Note ---
Date of Service December 09, 2018 Assessment & Plan (1) Right sided cerebral hemisphere cerebrovascular accident (CVA): Right-sided cerebral hemisphere CVA/residual left-sided weakness-- occurred 5 months ago, treated at [facility] Patient has returned some function of the left lower extremity, however, left upper extremity continues to be spastic. He continues to require significant amount of care. d/w Dr. Boyd, no other interventions, patient needs rehab looking in SNF closer to family, 1.5 hours away CM working on it (2) Nausea: His reports that movement of his head since his CVA, can result in significant acute nausea, sometimes vomiting. This appears to be associated with his previous CVA. just treat symptomatically with Zofran (3) Left-sided weakness: See above (4) Constipation: CT suggest rectosigmoid fecal retention, and constipation, which may be contributing to his nausea as well. Bowel regimen includes MiraLAX, senna and Fleet's enemas daily as needed. patient requested a suppository today (5) Hypertension: Continue carvedilol 6.25 mg p.o. twice daily, with hold parameters. BP stable (6) Muscle spasm: Would change baclofen from 10 mg p.o. 3 times daily as needed to scheduled , as patient's left upper extremity is curled inward in a complete spasm. (7) UTI (urinary tract infection): Urinalysis and urine culture from 11/29/18 shows alpha strep not enterococcus. Patient did complete a 7-day course of Bactrim 3 days ago. continue Rocephin, await repeat culture (8) Prostate cancer: Patient is status post radical prostatectomy several years ago. Subjective patient resting comfortably, no distress he was a little concerned that his was not in to see him yet I called his , spoke over the phone, assured him she would be in soon his would like him to go to a SNF near their family, 1.5 hours away from here I had CM contact the , SNF should be able to take him on Wednesday discussed case with Dr. Boyd unfortunately the patient already had ataxia prior to his stroke 5 months ago this has made his rehab very difficult she has little other to offer other than returning to rehab discussed with his , she admits that the past three weeks have been really difficult she feels like she cannot care for him unless he gets stronger reviewed labs, signs of UTI on UA, awaiting culture Review of Systems All systems reviewed & are unremarkable except as noted in HPI & below Constitutional: + fatigue and + weakness Neurologic: + localized weakness (left side, spastic contractions) Physical Exam 2 Vital Signs (Past 24 Hours): Last Vital Signs Temp 36.8 C 12/09/18 15:05 Pulse 60 12/09/18 15:05 Resp 20 12/09/18 15:05 BP 120/82 12/09/18 15:05 Pulse Ox 94 12/09/18 15:05 Constitutional: WD/WN, vitals as above Eyes: PERRL, conjunctivae normal, anicteric sclerae ENMT: external ear and nose normal, oropharynx normal Neck: trachea midline, no thyromegaly Respiratory: normal respiratory effort, lungs clear to auscultation Cardiovascular: RRR, no murmur, no edema Gastrointestinal (Abdomen): normal bowel sounds, soft, nontender, no hepatosplenomegaly Musculoskeletal: Head/Neck/Chest: normocephalic and head atraumatic Extremities: + abnormal strength (weakness left UE and LE) and + abnormal muscle tone (spastic left side); + extremities abnormal to inspection (left UE with contractures) Skin: no rashes, warm and dry Neurologic: patellar DTR's 2+ bilat, sensation intact and PERRL, EOMI, accommodation nl, no face palsy, no dysarthria Motor/Sensory: + tremor ( ataxic movements) Psychiatric: A+Ox3, euthymic affect Lymphatic: no cervical or axillary lymphadenopathy Results & Data Laboratory Results Laboratory Results - last 24 hr 12/08/18 12/08/18 12/08/18 16:00 16:00 19:00 WBC 4.95 RBC 4.44 L Hgb 13.9 L Hct 41.2 L MCV 92.8 MCH 31.3 MCHC 33.7 RDW Std Deviation 43.2 RDW Coeff of Deanne 12.8 Plt Count 192 MPV 10.8 H Immature Gran % (Auto) 0.0 Neut % (Auto) 50.0 Lymph % (Auto) 33.9 Redwood % (Auto) 12.1 Eos % (Auto) 2.6 Baso % (Auto) 1.4 Immature Gran # (Auto) 0.00 Neut # (Auto) 2.47 Lymph # (Auto) 1.68 Redwood # (Auto) 0.60 H Eos # (Auto) 0.13 Baso # (Auto) 0.07 PT INR Sodium 141 Potassium 4.1 Chloride 108 H Carbon Dioxide 30 Anion Gap 3.0 BUN 17 Creatinine 1.19 Est Cr Clr Drug Dosing 66.2 Est GFR ( Amer) 73.9 Est GFR (Non-Af Amer) 63.7 BUN/Creatinine Ratio 14.2 Glucose 90 Calcium 9.0 Total Bilirubin 0.4 AST 16 ALT 35 Alkaline Phosphatase 75 Total Protein 7.2 Albumin 3.8 Globulin 3.4 Albumin/Globulin Ratio 1.1 TSH 1.270 Urine Color Yellow Urine Appearance Cloudy H Urine pH 6.0 Ur Specific Vulcan 1.022 Urine Protein Negative Urine Glucose (UA) Negative Urine Ketones Trace H Urine Blood 1+ H Urine Nitrite Negative Urine Bilirubin Negative Urine Urobilinogen Positive H Ur Leukocyte Esterase 1+ H Urine WBC (Auto) 10-30 H Urine RBC (Auto) 10-30 H U Hyaline Cast (Auto) 10-30 H U Epithel Cells (Auto) >30 H Urine Bacteria (Auto) 2+ H Ur Renal Epithelial Cell 0-5 Urine Crystals Calcium Oxalate H Urine Yeast Not Reportable 12/09/18 05:31 WBC RBC Hgb Hct MCV MCH MCHC RDW Std Deviation RDW Coeff of Deanne Plt Count MPV Immature Gran % (Auto) Neut % (Auto) Lymph % (Auto) Redwood % (Auto) Eos % (Auto) Baso % (Auto) Immature Gran # (Auto) Neut # (Auto) Lymph # (Auto) Redwood # (Auto) Eos # (Auto) Baso # (Auto) PT 10.5 INR 1.0 Sodium Potassium Chloride Carbon Dioxide Anion Gap BUN Creatinine Est Cr Clr Drug Dosing Est GFR ( Amer) Est GFR (Non-Af Amer) BUN/Creatinine Ratio Glucose Calcium Total Bilirubin AST ALT Alkaline Phosphatase Total Protein Albumin Globulin Albumin/Globulin Ratio TSH Urine Color Urine Appearance Urine pH Ur Specific Vulcan Urine Protein Urine Glucose (UA) Urine Ketones Urine Blood Urine Nitrite Urine Bilirubin Urine Urobilinogen Ur Leukocyte Esterase Urine WBC (Auto) Urine RBC (Auto) U Hyaline Cast (Auto) U Epithel Cells (Auto) Urine Bacteria (Auto) Ur Renal Epithelial Cell Urine Crystals Urine Yeast Medications Administered Current Inpatient Medications Acetaminophen (Tylenol) 1,000 mg PO BID PRN PRN Reason: Pain Stop: 01/07/19 23:08 Acetaminophen (Tylenol) 650 mg PO Q4H PRN PRN Reason: Pain or Fever Stop: 01/07/19 23:08 Last Admin: 12/09/18 01:35 Dose: 650 mg Al Hydrox/Mg Hydrox/Simethicone (Maalox) 15 ml PO Q4H PRN PRN Reason: Dyspepsia Stop: 01/07/19 23:08 Baclofen (Lioresal) 10 mg PO TID [facility] Stop: 01/08/19 08:59 Last Admin: 12/09/18 14:33 Dose: 10 mg Carvedilol (Coreg) 6.25 mg PO BID [facility] Stop: 01/07/19 23:08 Last Admin: 12/09/18 08:49 Dose: 6.25 mg Enoxaparin Sodium (Lovenox) 40 mg SQ QAM [facility] Stop: 01/09/19 08:59 Ceftriaxone Sodium (Rocephin) 1,000 mg in 50 mls @ 100 mls/hr IV DAILY [facility] Stop: 12/19/18 08:59 Last Infusion: 12/09/18 09:41 Dose: Infused Magnesium Citrate (Citrate) 296 ml PO DAILY PRN PRN Reason: Constipation Stop: 01/07/19 23:08 Magnesium Hydroxide (Milk Of Magnesia) 30 ml PO Q12H PRN PRN Reason: Constipation Stop: 01/07/19 23:08 Ondansetron HCl (Zofran) 4 mg PO TID PRN PRN Reason: Nausea And Vomiting Stop: 01/07/19 23:08 Last Admin: 12/09/18 05:14 Dose: 4 mg Polyethylene Glycol (Miralax Powder Packet) 17 gm PO DAILY [facility] Stop: 01/08/19 08:59 Last Admin: 12/09/18 08:58 Dose: Not Given Senna/Docusate Sodium (Senokot S) 2 tab PO QAM [facility] Stop: 01/08/19 08:59 Last Admin: 12/09/18 08:48 Dose: 2 tab Sodium Biphosphate/Sodium Phosphate (Fleet Enema) 132 ml IN DAILY PRN PRN Reason: Constipation Stop: 01/07/19 23:08 _ (1) Constipation Constipation type: unspecified constipation type Qualified Code(s): K59.00 - Constipation, unspecified
[2018-12-10] MEDS: cefTRIAXone SODIUM 1,000 MG/50 ML BAG IV SCH (09:12)
[2018-12-10] MEDS: CARVEDILOL 6.25 MG TAB PO SCH ×2 (09:12→20:30)
[2018-12-10] MEDS: BACLOFEN 10 MG TAB PO SCH ×3 (09:17→20:30)
[2018-12-10] MEDS: ENOXAPARIN INJ 40 MG/0.4 ML SYR SQ SCH (09:18)
[2018-12-10] MEDS: POLYETHYLENE (MIRALAX) 17 GM PACK PO SCH ×2 (09:18→13:39)
[2018-12-10] MEDS: DOCUSATE SODIUM/SENNA 50/8.6MG TAB PO SCH ×2 (09:19→13:42)
[2018-12-10] MEDS ORDERED: ARTIFICIAL TEARS OP OINT 3.5 GM TUBE OP PRN (15:26)
--- NOTE | 2018-12-10 15:26 | Hospitalist Progress Note ---
Date of Service December 10, 2018 Assessment & Plan (1) Right sided cerebral hemisphere cerebrovascular accident (CVA): Right-sided cerebral hemisphere CVA/residual left-sided weakness-- occurred 5 months ago, treated at [facility] Patient has returned some function of the left lower extremity, however, left upper extremity continues to be spastic. He continues to require significant amount of care. d/w Dr. Boyd, no other interventions, patient needs rehab looking in SNF closer to family, 1.5 hours away CM working on it continue Baclofen for spasticity (2) Nausea: His reports that movement of his head since his CVA, can result in significant acute nausea, sometimes vomiting. This appears to be associated with his previous CVA. just treat symptomatically with Zofran (3) Left-sided weakness: See above (4) Constipation: CT suggest rectosigmoid fecal retention, and constipation, which may be contributing to his nausea as well. Bowel regimen includes MiraLAX, senna and Fleet's enemas daily as needed. patient requested a suppository on 12/09 moved bowel twice in the past 24 hours (5) Hypertension: Continue carvedilol 6.25 mg p.o. twice daily, with hold parameters. BP stable (6) Muscle spasm: Would change baclofen from 10 mg p.o. 3 times daily as needed to scheduled , as patient's left upper extremity is curled inward in a complete spasm. continue this on discharge, has less arm pain (7) UTI (urinary tract infection): Urinalysis and urine culture from 11/29/18 shows alpha strep not enterococcus. Patient did complete a 7-day course of Bactrim 3 days ago. continue Rocephin, await repeat culture, growing gram positive cocci but no final results (8) Prostate cancer: Patient is status post radical prostatectomy several years ago. (9) Depression: patient has lost motivation, sleeping a lot at home and here in hospital certainly past 5 months have been stressful and frustrating rehab has not gone well and may never regain his prior mobility patient admits that his mood is not good right now will continue Celexa 20mg daily I will ask psychiatry for any other recommendations for medications at this point Subjective patient is really tired his says that he has been more fatigued for a few weeks, not just here in the hospital discussed that there were no clear medications changes that might cause it likely not a neurologic issue since there are no further strokes UTI is adequately treated we discussed his mood, he admits that it is not good several weeks ago he lost his motivation to do rehab because things were so difficult at home he sleeps more and more has a flat affect certainly the past 6 months have been difficult with his stroke and poor mobility his said that the PCP lowered dose of Celexa recently from 30mg to 20mg I would suspect at this point that he is not adequately treated for his depression max dose for his age would be 20mg of Celexa I will ask psychiatry to make recommendations for either changing SSRI or augmenting treatment going forward Review of Systems All systems reviewed & are unremarkable except as noted in HPI & below Psychiatric: + depression and + problem reported (sleeping a lot) Physical Exam 2 Vital Signs (Past 24 Hours): Last Vital Signs Temp 36.8 C 12/10/18 12:07 Pulse 58 L 12/10/18 12:07 Resp 16 12/10/18 12:07 BP 130/88 12/10/18 12:07 Pulse Ox 96 12/10/18 12:07 Constitutional: WD/WN, vitals as above Eyes: PERRL, conjunctivae normal, anicteric sclerae ENMT: external ear and nose normal, oropharynx normal Neck: trachea midline, no thyromegaly Respiratory: normal respiratory effort, lungs clear to auscultation Cardiovascular: RRR, no murmur, no edema Gastrointestinal (Abdomen): normal bowel sounds, soft, nontender, no hepatosplenomegaly Musculoskeletal: Head/Neck/Chest: normocephalic and head atraumatic Extremities: + abnormal strength (weakness left UE and LE) and + abnormal muscle tone (spastic left side); + extremities abnormal to inspection (left UE with contractures) Skin: no rashes, warm and dry Neurologic: patellar DTR's 2+ bilat, sensation intact and PERRL, EOMI, accommodation nl, no face palsy, no dysarthria Motor/Sensory: + tremor ( ataxic movements) Psychiatric: Orientation: oriented x 3; + not alert (tired) Apperance: appropriately dressed Affect: + depressed affect Mood: + depressed mood Lymphatic: no cervical or axillary lymphadenopathy Results & Data Medications Administered Current Inpatient Medications Acetaminophen (Tylenol) 1,000 mg PO BID PRN PRN Reason: Pain Stop: 01/07/19 23:08 Acetaminophen (Tylenol) 650 mg PO Q4H PRN PRN Reason: Pain or Fever Stop: 01/07/19 23:08 Last Admin: 12/09/18 01:35 Dose: 650 mg Al Hydrox/Mg Hydrox/Simethicone (Maalox) 15 ml PO Q4H PRN PRN Reason: Dyspepsia Stop: 01/07/19 23:08 Baclofen (Lioresal) 10 mg PO TID [facility] Stop: 01/08/19 08:59 Last Admin: 12/10/18 13:39 Dose: 10 mg Carvedilol (Coreg) 6.25 mg PO BID [facility] Stop: 01/07/19 23:08 Last Admin: 12/10/18 09:12 Dose: 6.25 mg Enoxaparin Sodium (Lovenox) 40 mg SQ QAM [facility] Stop: 01/09/19 08:59 Last Admin: 12/10/18 09:18 Dose: 40 mg Ceftriaxone Sodium (Rocephin) 1,000 mg in 50 mls @ 100 mls/hr IV DAILY [facility] Stop: 12/19/18 08:59 Last Infusion: 12/10/18 09:45 Dose: Infused Magnesium Citrate (Citrate) 296 ml PO DAILY PRN PRN Reason: Constipation Stop: 01/07/19 23:08 Magnesium Hydroxide (Milk Of Magnesia) 30 ml PO Q12H PRN PRN Reason: Constipation Stop: 01/07/19 23:08 Multi-Ingredient Cream (Lacri-Lube) 1 appln OP Q2H PRN PRN Reason: Dryness Stop: 01/09/19 15:25 Ondansetron HCl (Zofran) 4 mg PO TID PRN PRN Reason: Nausea And Vomiting Stop: 01/07/19 23:08 Last Admin: 12/09/18 05:14 Dose: 4 mg Polyethylene Glycol (Miralax Powder Packet) 17 gm PO DAILY [facility] Stop: 01/08/19 08:59 Last Admin: 12/10/18 13:39 Dose: 17 gm Senna/Docusate Sodium (Senokot S) 2 tab PO QAM [facility] Stop: 01/08/19 08:59 Last Admin: 12/10/18 13:42 Dose: Not Given Sodium Biphosphate/Sodium Phosphate (Fleet Enema) 132 ml [place] DAILY PRN PRN Reason: Constipation Stop: 01/07/19 23:08 _ (1) Constipation Constipation type: unspecified constipation type Qualified Code(s): K59.00 - Constipation, unspecified
[2018-12-11] MEDS: CARVEDILOL 6.25 MG TAB PO SCH ×2 (08:05→21:22)
[2018-12-11] MEDS: BACLOFEN 10 MG TAB PO SCH ×3 (08:06→21:22)
[2018-12-11] MEDS: ENOXAPARIN INJ 40 MG/0.4 ML SYR SQ SCH ×2 (08:06→08:17)
[2018-12-11] MEDS: POLYETHYLENE (MIRALAX) 17 GM PACK PO SCH (08:07)
[2018-12-11] MEDS: DOCUSATE SODIUM/SENNA 50/8.6MG TAB PO SCH (08:07)
[2018-12-11] MEDS: cefTRIAXone SODIUM 1,000 MG/50 ML BAG IV SCH (08:07)
[2018-12-11] MEDS ORDERED: CITALOPRAM 20 MG TAB PO SCH (09:00)
--- NOTE | 2018-12-11 16:06 | Hospitalist Progress Note ---
Date of Service December 11, 2018 Assessment & Plan (1) Right sided cerebral hemisphere cerebrovascular accident (CVA): Right-sided cerebral hemisphere CVA/residual left-sided weakness-- occurred 5 months ago, treated at [facility] Patient has returned some function of the left lower extremity, however, left upper extremity continues to be spastic. neurology agrees with using Baclofen TID He continues to require significant amount of care. d/w Dr. Boyd, no other interventions, patient needs rehab looking in SNF closer to family, 1.5 hours away will be discharged at 9am tomorrow, family will transport The discharge is complete, all that needs done is Lexapro 15mg daily added to medications and script printed and signed and discharge order placed (2) Nausea: His reports that movement of his head since his CVA, can result in significant acute nausea, sometimes vomiting. This appears to be associated with his previous CVA. just treat symptomatically with Zofran (3) Left-sided weakness: See above (4) Constipation: CT suggest rectosigmoid fecal retention, and constipation, which may be contributing to his nausea as well. Bowel regimen includes MiraLAX, senna and Fleet's enemas daily as needed. patient requested a suppository on 12/09 moved bowel twice on 12/10 (5) Hypertension: Continue carvedilol 6.25 mg p.o. twice daily, with hold parameters. BP stable (6) Muscle spasm: Would change baclofen from 10 mg p.o. 3 times daily as needed to scheduled , as patient's left upper extremity is curled inward in a complete spasm. continue this on discharge, has less arm pain needs left arm extended and stretched daily or twice a day (7) UTI (urinary tract infection): Urinalysis and urine culture from 11/29/18 shows alpha strep not enterococcus. Patient did complete a 7-day course of Bactrim 3 days ago. urine culture grew Enterococcus so Rocephin would not be helpful will change to Augmentin, prescribed 14 days, treat as complicated (8) Prostate cancer: Patient is status post radical prostatectomy several years ago. (9) Depression: patient has lost motivation, sleeping a lot at home and here in hospital certainly past 5 months have been stressful and frustrating rehab has not gone well and may never regain his prior mobility has expressed suicidal ideation in the past but not recently patient admits that his mood is not good right now appreciate psychiatry consultation will stop Celexa, start Lexapro 15mg daily see below for their recommendations going forward at SNF... First recommendation is a change to lexapro and put the dose at 15mg (this is alexx to revisiting 30mg celexa) with watching mood, as well as dizziness. It is paramount that the staff at patient's new SNF monitor closely. (side effects to monitor include Headaches, GI upset to include less like eating, nausea, loose bowels, less likely poor sleep or somnolence) Second recommendation, if lexapro is related to increase of dizziness, OR does not help mood, could consider reduce to lexapro 10mg dose and addition of low dose wellbutrin SR 100mg po qAM (watching increased risk of seizure with baclofen, benefits will likely outweigh risk; watch Headache, blurry vision, dry mouth, constipation, as well as for a welcome activation or energy, not an anxious or irritable activation) Coordination of Care - PLEASE SEND COPY OF THIS CONSULT TO SNF and ask for psychiatric f/u or close primary care f/u for this issue as the questions will be answered with close observation and time - I have asked the patient's to prompt the medical doctor at the facility to inquire on how this is being monitored to minimize risk of this concern falling through the cracks in transition of care. Subjective patient again very tired today acting confused at times, talking about past events like they are in the present was concerned, updated her at the bedside discussed that the urine culture came back positive for Enterococcus which Rocephin would not cover will change to Augmentin discussed that delirium likely contributing greatly appreciate psychiatry consultation for depression will change to Lexapro 15mg will make SNF aware of potential side effects patient still sleeping a lot but will respond appropriately when asked questions Review of Systems All systems reviewed & are unremarkable except as noted in HPI & below Constitutional: + fatigue and + weakness Psychiatric: + depression and + abnormal sleep pattern (sleeping excessively) Physical Exam 2 Vital Signs (Past 24 Hours): Last Vital Signs Temp 36.9 C 12/11/18 15:45 Pulse 62 12/11/18 15:45 Resp 16 12/11/18 15:45 BP 119/76 12/11/18 15:45 Pulse Ox 98 12/11/18 15:45 Constitutional: WD/WN, vitals as above Eyes: PERRL, conjunctivae normal, anicteric sclerae ENMT: external ear and nose normal, oropharynx normal Neck: trachea midline, no thyromegaly Respiratory: normal respiratory effort, lungs clear to auscultation Cardiovascular: RRR, no murmur, no edema Gastrointestinal (Abdomen): normal bowel sounds, soft, nontender, no hepatosplenomegaly Musculoskeletal: Head/Neck/Chest: normocephalic and head atraumatic Extremities: + abnormal strength (weakness left UE and LE) and + abnormal muscle tone (spastic left side) Skin: no rashes, warm and dry Neurologic: patellar DTR's 2+ bilat, sensation intact and PERRL, EOMI, accommodation nl, no face palsy, no dysarthria Motor/Sensory: + tremor ( ataxic movements) Psychiatric: A+Ox3, euthymic affect Orientation: oriented x 3; + not alert (tired) Apperance: appropriately dressed Affect: + depressed affect Mood: + depressed mood Lymphatic: no cervical or axillary lymphadenopathy Results & Data Laboratory Results Microbiology 12/08/18 19:00 Urine,Indwelling Cath Urine Culture - Final Enterococcus faecalis Medications Administered Current Inpatient Medications Acetaminophen (Tylenol) 1,000 mg PO BID PRN PRN Reason: Pain Stop: 01/07/19 23:08 Last Admin: 12/11/18 15:36 Dose: 1,000 mg Acetaminophen (Tylenol) 650 mg PO Q4H PRN PRN Reason: Pain or Fever Stop: 01/07/19 23:08 Last Admin: 12/09/18 01:35 Dose: 650 mg Al Hydrox/Mg Hydrox/Simethicone (Maalox) 15 ml PO Q4H PRN PRN Reason: Dyspepsia Stop: 01/07/19 23:08 Amoxicillin/Clavulanate Potassium (Augmentin 875mg) 1 tab PO BIDM [facility]; Protocol Stop: 12/21/18 16:59 Baclofen (Lioresal) 10 mg PO TID [facility] Stop: 01/08/19 08:59 Last Admin: 12/11/18 14:18 Dose: 10 mg Carvedilol (Coreg) 6.25 mg PO BID [facility] Stop: 01/07/19 23:08 Last Admin: 12/11/18 08:05 Dose: 6.25 mg Citalopram Hydrobromide (Celexa) 20 mg PO QAM [facility] Stop: 01/10/19 08:59 Last Admin: 12/11/18 08:06 Dose: 20 mg Magnesium Citrate (Citrate) 296 ml PO DAILY PRN PRN Reason: Constipation Stop: 01/07/19 23:08 Magnesium Hydroxide (Milk Of Magnesia) 30 ml PO Q12H PRN PRN Reason: Constipation Stop: 01/07/19 23:08 Multi-Ingredient Cream (Lacri-Lube) 1 appln OP Q2H PRN PRN Reason: Dryness Stop: 01/09/19 15:25 Ondansetron HCl (Zofran) 4 mg PO TID PRN PRN Reason: Nausea And Vomiting Stop: 01/07/19 23:08 Last Admin: 12/09/18 05:14 Dose: 4 mg Polyethylene Glycol (Miralax Powder Packet) 17 gm PO DAILY [facility] Stop: 01/08/19 08:59 Last Admin: 12/11/18 08:07 Dose: Not Given Senna/Docusate Sodium (Senokot S) 2 tab PO [facility] Stop: 01/08/19 08:59 Last Admin: 12/11/18 08:07 Dose: Not Given Sodium Biphosphate/Sodium Phosphate (Fleet Enema) 132 ml [place] DAILY PRN PRN Reason: Constipation Stop: 01/07/19 23:08 _ (1) Constipation Constipation type: unspecified constipation type Qualified Code(s): K59.00 - Constipation, unspecified
[2018-12-11] MEDS: AMOXICILLIN/CLAVULANATE 875 MG TAB PO SCH (17:07)
--- NOTE | 2018-12-11 18:14 | Psychiatric Consultation ---
Date of Consultation December 11, 2018 Impression / Recommendations Impression The patient is a 63yo MWM with residual weakness and spascticity s/p right sided CVA 5months ago. He had pre-existing ataxia to which dizziness was atrributed to. However it was not know to family that he has been on an SSRI pre-stroke and also unknown duration. He is having increased dizziness with positional change since his stroke and given that it is worse and he remains presently on the celexa 20mg, it is not likely the full culprit. 1. Safety - patient has made some passive suicidal statements in the last several months. He presently denies SI, INtention or plan. - as a precaution will ask family to secure any weapons in the home as his stressors and deficits are chronic and it would eliminate any future risk of acquisition of a weapon if SI returns when he is eventually in the family home - there is no current indication for psychiatric admission, he can f/u with PCM or psychiatry at the outpatient SNF if available 2. Antidepressant - it is wholly unclear if this patient gets dizziness on SSRI or not. Further any antidepressant can cause dizziness, SSRI range from 2-10% depdending on the study, and some individuals are more susceptible than others. First recommendation is a change to lexapro and put the dose at 15mg (this is alexx to revisiting 30mg celexa) with watching mood, as well as dizziness. It is paramount that the staff at patient's new SNF monitor closely. (side effects to monitor include Headaches, GI upset to include less like eating, nausea, loose bowels, less likely poor sleep or somnolence) Second recommendation, if lexapro is related to increase of dizziness, OR does not help mood, could consider reduce to lexapro 10mg dose and addition of low dose wellbutrin SR 100mg po qAM (watching increased risk of seizure with baclofen, benefits will likely outweigh risk; watch Headache, blurry vision, dry mouth, constipation, as well as for a welcome activation or energy, not an anxious or irritable activation) 3. Coordination of Care - PLEASE SEND COPY OF THIS CONSULT TO SNF and ask for psychiatric f/u or close primary care f/u for this issue as the questions will be answered with close observation and time - I have asked the patient's to prompt the medical doctor at the facility to inquire on how this is being monitored to minimize risk of this concern falling through the cracks in transition of care. Thank you for allowing me to participate in this patient's care, please call with questions or concerns. Risk Factors Assessment Male: Yes : Yes Do You Have Access To A Gun?: No (not at rehab where he is headed, will ask family to secure any guns in the home) Health Problems: Yes Mental Health Diagnoses: Yes Substance Use Disorders: No Previous Attempt: No Previous Attempt; Highly Lethal: No Previous Attempt; Planned: No Previous Attempt; Didn't Tell Anyone: No Family History of Suicide: No Previous Psychiatric Hospitalization: No Hopelessness: No Smoker: No Protective Factors Assessment Pentecostal Beliefs: Yes : Yes Responsible for Young Children: No Employed: No Stable Relationships: Yes Supportive Family: Yes CPT Code 44967 Psych History Identifying Data The patient is a 63yo MWM with h/o Right sided CVA with left sided weakness 5months ago, currently admitted treated with UTI. His mood is presently low, and given h/o dizziness possibly from higher doses of his celexa primary team is looking for recommendations for treatment of his low mood. Chief Complaint "I want to get out of this hospital". History of Present Illness The patient is a 63-year-old male who had a stroke approximately 5 months ago, taking care of at [facility], with residual left arm and left leg weakness, bowel and urinary incontinence now under treatment for UTI. Per patient's he was unbeknownst to her on celexa prior to his stroke 20mg (as it was found in his home medications after his stroke) At that time he was continued on 20mg/d, but through the holiday season while at [facility] his mood was declining and he made statements of passive wishes he was not around, and appeared more depressed. This prompted the [facility] psychiatrist to increase the dose to 30mg. "there was so much going on, it is not clear if it helped him or not." She noted that when he arrived home 2 weeks ago the dose again was at 20mg for unclear reasons. THe patient has a h/o ataxia that started a few years prior to his stroke of which the feeling of dizziness is a concern. THe family reports that his dizziness worsens when he moves his head or attempts to be mobile since his stroke. THe patient has more recently during his UTI had hallucinations but never psychotic otherwise, been more sleepy difficulty to arouse with frequent naps, lower appetite in the two weeks he had been home. THe patient and his deny anxiety. He has made vague statements that he wishes he could be gone, very intermittantly in October time frame and during his 2 weeks at home it was again mentioned. However today patient admantly denies SI, intention or plan stating 'I would never do that, I need to be here for my family." He shares that he is irritable being here at the hospital but denies feeling irritable otherwise. He has trouble stating if he feels more down or not or if the medication he takes helps his mood. Past Psychiatric History Previous Psych History: no formal psychiatric care, celexa through [facility] no otherw known psych history Do You Have Access To A Gun?: No (not at rehab where he is headed, will ask family to secure any guns in the home) History of Previous Suicide Attempt: No Allergies Allergy/AdvReac Type Severity Reaction Status Date / Time No Known Allergies Allergy Unverified 12/08/18 15:53 Home Medications Home Medications Medication Instructions Recorded Confirmed Type acetaminophen 1,000 mg PO BID PRN 12/08/18 12/08/18 History baclofen 10 mg PO TID PRN 12/08/18 12/08/18 History carvedilol 6.25 mg PO BID 12/08/18 12/08/18 History magnesium citrate 1 dose PO UD PRN 12/08/18 12/08/18 History magnesium hydroxide [Milk of 30 ml PO UD PRN 12/08/18 12/08/18 History Magnesia] melatonin 3 mg PO HS PRN 12/08/18 12/08/18 History ondansetron HCl [Zofran] 4 mg PO TID PRN 12/08/18 12/08/18 History polyethylene glycol 3350 [Miralax] 17 g PO UD PRN 12/08/18 12/08/18 History sennosides [senna] 8.6 mg PO DAILY PRN 12/08/18 12/08/18 History sodium phosphates [Fleet Enema] 118 ml [place] UD PRN 12/08/18 12/08/18 History amoxicillin-pot clavulanate 1 tab PO BIDM 14 Days #28 tab 12/11/18 Rx citalopram 20 mg PO QAM 30 Days #30 tab 12/11/18 Rx Family History mother had anxiety o/w negative for suicide, substance use Substance Abuse History no drugs, no alcohol, no tobacco Personal History Living Arrangements Comments: prior to stroke lived with in family home, but s/p stroke has been in rehab for many months, then for two weeks home, now readmitted to the hospital Born In: [place] Highest Grade Completed Comment: college four years, criminal justice 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[place]) Number Of Children: 2 children, son and are supportive Beliefs That Will Affect Care: None and Pentecostal History of Legal Problems: none Psychological Trauma History Comment: none Patient History Medical History History of stroke with residual deficit Family History Other Family history non-contributory Social History Current Living Situation: Spouse Other Information That Helps Us Care for You: No Feels Safe at Home: Yes Safety Concerns: Feels Safe At This Time Smoking Status: Never smoker Hx Alcohol Use: No Hx Substance Use: No Beliefs That Will Affect Care: None and Pentecostal Communication Ability: Effective Physical Exam Psychiatric Orientation: alert and oriented x 3 sitting in bed in hospital gown, upright in front of tray with son assisting him in mechanical aspect of eating He is clean, mouth droops on one side Eye Contact: good eye contact Motor Behavior: no abnormal motor movements (aside from facial weakness noted above) spontaneous speech wtih difficulty with articulation, some disjointed concepts but is able to repeat himself to assist with relaying his complete thought Affect: + irritable affect (initially, perseverative on leaving the hospital, but quickly moves to euthymic state with stoic questions his mood and affect are appropriate) "I am okay, I want to leave the hospital" Thought Process: clear/coherent thought process Thought Content: + preoccupation (with leaving the hospital, but reality based no evidence of psychosis or delirum during this interview) Suicidal Thoughts: + reports suicidal thoughts, + reports suicidal plan and + reports suicidal intent Homicidal Thoughts: denies homicidal thoughts Hallucinations: no auditory hallucinations and no visual hallucinations Cognition: attention grossly intact memory is limited for the specific information about mental health history, dates and times of medications staring and dose changes o/w memory not more formally assessed Estimated Intelligence: average estimated intelligence Insight: + fair insight Judgement: + fair judgement Vital Signs (Past 24 Hours) Last Vital Signs Temp 36.9 C 12/11/18 15:45 Pulse 62 12/11/18 15:45 Resp 16 12/11/18 15:45 BP 119/76 12/11/18 15:45 Pulse Ox 98 12/11/18 15:45 Review of Systems pych : none other than stated above constitutional : "no I am fine" musculoskeltal : weakness, spasticity ENT/Neuro: dizziness with psitional changes Results & Data Medications Administered Acetaminophen (Tylenol) 1,000 mg PO BID PRN PRN Reason: Pain Stop: 01/07/19 23:08 Last Admin: 12/11/18 15:36 Dose: 1,000 mg Acetaminophen (Tylenol) 650 mg PO Q4H PRN PRN Reason: Pain or Fever Stop: 01/07/19 23:08 Last Admin: 12/09/18 01:35 Dose: 650 mg Amoxicillin/Clavulanate Potassium (Augmentin 875mg) 1 tab PO BIDM [facility]; Protocol Stop: 12/21/18 16:59 Last Admin: 12/11/18 17:07 Dose: 1 tab Baclofen (Lioresal) 10 mg PO TID [facility] Stop: 01/08/19 08:59 Last Admin: 12/11/18 14:18 Dose: 10 mg Admin: 12/11/18 08:06 Dose: 10 mg Admin: 12/10/18 20:30 Dose: 10 mg Admin: 12/10/18 13:39 Dose: 10 mg Admin: 12/10/18 09:17 Dose: 10 mg Admin: 12/09/18 20:03 Dose: 10 mg Admin: 12/09/18 14:33 Dose: 10 mg Admin: 12/09/18 08:49 Dose: 10 mg Carvedilol (Coreg) 6.25 mg PO BID [facility] Stop: 01/07/19 23:08 Last Admin: 12/11/18 08:05 Dose: 6.25 mg Admin: 12/10/18 20:30 Dose: 6.25 mg Admin: 12/10/18 09:12 Dose: 6.25 mg Admin: 12/09/18 20:03 Dose: 6.25 mg Admin: 12/09/18 08:49 Dose: 6.25 mg Admin: 12/09/18 00:43 Dose: Not Given Citalopram Hydrobromide (Celexa) 20 mg PO QAM [facility] Stop: 01/10/19 08:59 Last Admin: 12/11/18 08:06 Dose: 20 mg Ondansetron HCl (Zofran) 4 mg PO TID PRN PRN Reason: Nausea And Vomiting Stop: 01/07/19 23:08 Last Admin: 12/09/18 05:14 Dose: 4 mg Polyethylene Glycol (Miralax Powder Packet) 17 gm PO DAILY [facility] Stop: 01/08/19 08:59 Last Admin: 12/11/18 08:07 Dose: Not Given Admin: 12/10/18 13:39 Dose: 17 gm Admin: 12/09/18 08:58 Dose: Not Given Senna/Docusate Sodium (Senokot S) 2 tab PO QAM [facility] Stop: 01/08/19 08:59 Last Admin: 12/11/18 08:07 Dose: Not Given Admin: 12/10/18 13:42 Dose: Not Given Admin: 12/09/18 08:48 Dose: 2 tab
[2018-12-12 05:55] LABS: Hematocrit (blood only) 37.4 % (42-52); Hemoglobin 12.6 g/dL (14.0-18.0); Mean Corpuscular Hgb Conc 33.7 g/dL (32-36); Mean Corpuscular Volume 92.8 fL (80-100); Mean Platelet Volume 10.4 fL (7.4-10.4); Platelet Count 180 K/uL (130-400); RDW Coefficient of Variation 12.8 % (11.5-14.5); RDW Standard Deviation 43.2 fL (36.4-46.3); Red Blood Count 4.03 M/uL (4.7-6.1); White Blood Count 6.41 K/uL (4.8-10.8)
[2018-12-12] MEDS: CARVEDILOL 6.25 MG TAB PO SCH (08:04)
[2018-12-12] MEDS: POLYETHYLENE (MIRALAX) 17 GM PACK PO SCH (08:05)
[2018-12-12] MEDS: BACLOFEN 10 MG TAB PO SCH (08:05)
[2018-12-12] MEDS: DOCUSATE SODIUM/SENNA 50/8.6MG TAB PO SCH (08:05)
[2018-12-12] MEDS: AMOXICILLIN/CLAVULANATE 875 MG TAB PO SCH (08:06)
--- NOTE | 2018-12-12 08:35 | Discharge Summary ---
Date of Service December 12, 2018 Admission HPI Per Admitting Provider The patient is a 63-year-old male who had a stroke approximately 5 months ago, taking care of at [facility], with residual left arm and left leg weakness, bowel and urinary incontinence now under treatment for UTI. Per patient's he was unbeknownst to her on celexa prior to his stroke 20mg (as it was found in his home medications after his stroke) At that time he was continued on 20mg/d, but through the holiday season while at [facility] his mood was declining and he made statements of passive wishes he was not around, and appeared more depressed. This prompted the [facility] psychiatrist to increase the dose to 30mg. "there was so much going on, it is not clear if it helped him or not." She noted that when he arrived home 2 weeks ago the dose again was at 20mg for unclear reasons. THe patient has a h/o ataxia that started a few years prior to his stroke of which the feeling of dizziness is a concern. THe family reports that his dizziness worsens when he moves his head or attempts to be mobile since his stroke. THe patient has more recently during his UTI had hallucinations but never psychotic otherwise, been more sleepy difficulty to arouse with frequent naps, lower appetite in the two weeks he had been home. THe patient and his deny anxiety. He has made vague statements that he wishes he could be gone, very intermittantly in October time frame and during his 2 weeks at home it was again mentioned. However today patient admantly denies SI, intention or plan stating 'I would never do that, I need to be here for my family." He shares that he is irritable being here at the hospital but denies feeling irritable otherwise. He has trouble stating if he feels more down or not or if the medication he takes helps his mood. Principal Diagnosis UTI Discharge Exam Constitutional: WD/WN, vitals as above Eyes: PERRL, conjunctivae normal, anicteric sclerae ENMT: external ear and nose normal, oropharynx normal Neck: trachea midline, no thyromegaly Respiratory: normal respiratory effort, lungs clear to auscultation Cardiovascular: RRR, no murmur, no edema Gastrointestinal (Abdomen): normal bowel sounds, soft, nontender, no hepatosplenomegaly Musculoskeletal: Head/Neck/Chest: normocephalic and head atraumatic Extremities: + abnormal strength (weakness left UE and LE) and + abnormal muscle tone (spastic left side) Skin: no rashes, warm and dry Neurologic: patellar DTR's 2+ bilat, sensation intact and PERRL, EOMI, accommodation nl, no face palsy, no dysarthria Motor/Sensory: + tremor (ataxic movements) Psychiatric: A+Ox3, euthymic affect Orientation: oriented x 3; + Apperance : appropriately dressed Affect: + depressed affect Mood: + depressed mood Lymphatic: no cervical or axillary lymphadenopathy Discharge Data Allergies Allergy/AdvReac Type Severity Reaction Status Date / Time No Known Allergies Allergy Unverified 12/08/18 15:53 Consultations 12/08/18 18:30 ED Decision to Admit Stat 12/08/18 23:09 Consult Case Management - Discharge Planning Routine 12/09/18 02:18 Consult Neurology Routine 12/10/18 17:49 Consult Psychiatry Routine Ordered Studies 12/08/18 15:19 CT abd pelvis wo con Stat CT head/brain wo con Stat Hospital Course (1) Right sided cerebral hemisphere cerebrovascular accident (CVA): Right-sided cerebral hemisphere CVA/residual left-sided weakness-- occurred 5 months ago, treated at [facility] Patient has returned some function of the left lower extremity, however, left upper extremity continues to be spastic. neurology agrees with using Baclofen TID He continues to require significant amount of care. d/w Dr. Boyd, no other interventions, patient needs rehab looking in SNF closer to family, 1.5 hours away will be discharged today, family will transport The discharge is complete, all that needs done is Lexapro 15mg daily added to medications and script printed and signed and discharge order placed (2) Nausea: His reports that movement of his head since his CVA, can result in significant acute nausea, sometimes vomiting. This appears to be associated with his previous CVA. just treat symptomatically with Zofran (3) Left-sided weakness: See above (4) Constipation: CT suggest rectosigmoid fecal retention, and constipation, which may be contributing to his nausea as well. Bowel regimen includes MiraLAX, senna and Fleet's enemas daily as needed. patient requested a suppository on 12/09 moved bowel twice on 12/10 (5) Hypertension: Continue carvedilol 6.25 mg p.o. twice daily, with hold parameters. BP stable (6) Muscle spasm: Would change baclofen from 10 mg p.o. 3 times daily as needed to scheduled , as patient's left upper extremity is curled inward in a complete spasm. continue this on discharge, has less arm pain needs left arm extended and stretched daily or twice a day (7) UTI (urinary tract infection): Urinalysis and urine culture from 11/29/18 shows alpha strep not enterococcus. Patient did complete a 7-day course of Bactrim 3 days ago. urine culture grew Enterococcus so Rocephin would not be helpful will change to Augmentin, prescribed 14 days, treat as complicated (8) Prostate cancer: Patient is status post radical prostatectomy several years ago. (9) Depression: patient has lost motivation, sleeping a lot at home and here in hospital certainly past 5 months have been stressful and frustrating rehab has not gone well and may never regain his prior mobility has expressed suicidal ideation in the past but not recently patient admits that his mood is not good right now appreciate psychiatry consultation will stop Celexa, start Lexapro 15mg daily see below for their recommendations going forward at SNF... First recommendation is a change to lexapro and put the dose at 15mg (this is alexx to revisiting 30mg celexa) with watching mood, as well as dizziness. It is paramount that the staff at patient's new SNF monitor closely. (side effects to monitor include Headaches, GI upset to include less like eating, nausea, loose bowels, less likely poor sleep or somnolence) Second recommendation, if lexapro is related to increase of dizziness, OR does not help mood, could consider reduce to lexapro 10mg dose and addition of low dose wellbutrin SR 100mg po qAM (watching increased risk of seizure with baclofen, benefits will likely outweigh risk; watch Headache, blurry vision, dry mouth, constipation, as well as for a welcome activation or energy, not an anxious or irritable activation) Coordination of Care - PLEASE SEND COPY OF THIS CONSULT TO SNF and ask for psychiatric f/u or close primary care f/u for this issue as the questions will be answered with close observation and time - I have asked the patient's to prompt the medical doctor at the facility to inquire on how this is being monitored to minimize risk of this concern falling through the cracks in transition of care. Total Time Total Time Spent Total Time Spent (In Minutes): 35 Total Time Includes: Examination of the Patient and Discharge Planning Discharge Plan Discharge Items Patient Disposition: Transfer Nursing Home Fac Reason For Visit: PROGRESSIVE WEAKNESS,NAUSEA,VOMITING,AMS,CONSTIPAT Discharge Diagnosis: UTI - Enterococcus prior stroke with left sided weakness, left arm spastic weakness Hospital delirium Condition: Good Discharge Goals: Improve function, Increase independence and Improve nutritional status Activity: Resume your previous activity Non-emergency contact: Primary Care Provider Call non-emergency contact if: you have any medication questions, your symptoms worsen and you have a fever Diet: Heart Healthy Addtl Provider Instructions: Medications: - AUGMENTIN: to treat Enterococcus UTI, would complete 14 days as this is complicated infection in male - LEXAPRO: new antidepressant, 15mg daily, see below for psychiatry comments and recommendations UTI - Enteroccocus, mckay sensitive will treat with Augmentin for 14 days previous culture as outpatient grew Alpha strep not enterococcus, so this is a different infection would explain why he was getting worse despite Bactrim prior stroke, left sided weakness and left arm with spasms patient has had a difficult time at home the past three weeks, needs more support than family can provide will go to SNF for further rehab stroke was 5 months ago, has baseline ataxia (see below) which has made recovery 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 First recommendation is a change to lexapro and put the dose at 15mg (this is alexx to revisiting 30mg celexa) with watching mood, as well as dizziness. It is paramount that the staff at patient's new SNF monitor closely. (side effects to monitor include Headaches, GI upset to include less like eating, nausea, loose bowels, less likely poor sleep or somnolence) Second recommendation, if lexapro is related to increase of dizziness, OR does not help mood, could consider reduce to lexapro 10mg dose and addition of low dose wellbutrin SR 100mg po qAM (watching increased risk of seizure with baclofen, benefits will likely outweigh risk; watch Headache, blurry vision, dry mouth, constipation, as well as for a welcome activation or energy, not an anxious or irritable activation) Coordination of Care - PLEASE SEND COPY OF THIS CONSULT TO SNF and ask for psychiatric f/u or close primary care f/u for this issue as the questions will be answered with close observation and time - I have asked the patient's to prompt the medical doctor at the facility to inquire on how this is being monitored to minimize risk of this concern falling through the cracks in transition of care. FOLLOW UP - physician at SNF Prescriptions: New amoxicillin-pot clavulanate 875-125 mg Tablet 1 tab PO BIDM 14 Days Qty: 28 RF: 0 escitalopram oxalate 10 mg Tablet 15 mg PO QAM Qty: 30 RF: 0 Continue sennosides [senna] 8.6 mg Tablet 8.6 mg PO DAILY PRN (Reason: Constipation) RF: 0 carvedilol 6.25 mg Tablet 6.25 mg PO BID RF: 0 polyethylene glycol 3350 [Miralax] 17 gram Powder In Packet 17 g PO UD PRN (Reason: Constipation) RF: 0 ondansetron HCl [Zofran] 4 mg Tablet 4 mg PO TID PRN (Reason: Nausea And Vomiting) RF: 0 melatonin 3 mg Tablet 3 mg PO HS PRN (Reason: Sleep) RF: 0 acetaminophen 500 mg Tablet 1,000 mg PO BID PRN (Reason: Pain) RF: 0 magnesium hydroxide [Milk of Magnesia] 400 mg/5 mL Suspension 30 ml PO UD PRN (Reason: Constipation) RF: 0 baclofen 10 mg Tablet 10 mg PO TID PRN (Reason: Muscle Spasm) RF: 0 sodium phosphates [Fleet Enema] 19-7 gram/118 mL Enema 118 ml [place] UD PRN (Reason: Constipation) RF: 0 magnesium citrate Solution 1 dose PO UD PRN (Reason: Constipation) RF: 0 Stand-Alone Forms: [facility] Discharge Orders: Discharge Order (Routine); Ordered 12/12/18 Ordered By: Holland Nazario Skilled Items Patient informed of condition?: Yes DNR: No Discharge Level of Care: Skilled Communicable Disease: No Discharge Prognosis: Stable Admission Data Admit Date/Time: 12/08/18 21:45 Attending Provider: Holland Nazario Admit Provider: Rich Godinez Primary Care Provider: Juan Antonio Perdomo III Other Providers: Aaliyah Kim Lynette D Service: Telemetry Other Interventions: Discharge Summary Assessment (RN) Last Done: 12/12/18 08:58 DC Date/Time DO NOT enter until pt leaves facility: 12/12/18 11:45
[2018-12-12] MEDS ORDERED: ESCITALOPRAM OXALATE 10 MG TAB PO SCH (09:00)
== END 2018-12-12 11:45 | DRG 57 ==
LOC: ED 14:33 → SUATTDRO 21:45 → 2N 21:45